=== PATIENT | female | born 1965 | race Caucasian/White ===

== ENCOUNTER 2023-06-14 10:36 | Outpatient (OUT) | payer BC, SELFPAY ==
--- NOTE | 2023-06-14 10:46 | ECG_ITS ---
[facility] Test Date: 2023-06-14 Pat Name: RUBY YBARRA Department: Room: - Gender: Female [employer]: : 1965 Requested By: Jeb Patterson Order Number: [id number] Reading MD: JIMMY TREJO Measurements Intervals Moyers Rate: 56 P: 17 PA: 162 QRS: -3 QRSD: 93 T: 19 QT: 380 QTc: 368 Interpretive Statements SINUS BRADYCARDIA LOW QRS VOLTAGE IN PRECORDIAL LEADS [QRS DEFLECTION < 1.0 mV IN CHEST LEADS] No previous ECG available for comparison Electronically Signed On 06-14-2023 22:54:58 EST by JIMMY TREJO
--- NOTE | 2023-06-14 11:35 | PM.PRESUREVA ---
History of Present Illness History of Present Illness Chief complaint: Right shoulder rotator cuff tear Narrative: Patient presents for preadmission testing. The patient reports right shoulder pain for quite some time and she had an MRI which demonstrated a rotator cuff tear. The patient states she has difficulty and pain with range of motion. She states at times she has intermittent numbness and tingling in her right hand. She states she does take Aleve which gives her some relief of her symptoms. Review of Systems ROS Narrative REVIEW OF SYSTEMS: Negative except as stated in HPI, ten or more systems reviewed. Constitutional: No fever , chills, weakness ENT: No sore throat or epistaxis Cardiovascular: No edema, chest pain, palpitations; Admits to dyspnea on exertion Respiratory: No shortness of breath, cough, or wheezing Gastrointestinal: No abdominal pain, constipation, diarrhea, or vomiting Genitourinary: No dysuria or hematuria Neurological: No headache Psychiatric: No mood changes [facility] Medical History (Updated 06/14/23 @ 11:41 by Erin Adams NP) Traumatic partial tear of right biceps tendon ?S46.211A - Strain of muscle, fascia and tendon of other parts of biceps, right arm, initial encounter (ICD-10) Back pain ?M54.9 - Dorsalgia, unspecified (ICD-10) Arthritis ?M19.90 - Unspecified osteoarthritis, unspecified site (ICD-10) Rotator cuff tear ?M75.100 - Unspecified rotator cuff tear or rupture of unspecified shoulder, not specified as traumatic (ICD-10) S/P extracorporeal shock wave therapy ?Z98.890 - Other specified postprocedural states (ICD-10) Insomnia ?G47.00 - Insomnia, unspecified (ICD-10) Kidney stones ?N20.0 - Calculus of kidney (ICD-10) Dyspnea on exertion ?R06.09 - Other forms of dyspnea (ICD-10) High cholesterol ?E78.00 - Pure hypercholesterolemia, unspecified (ICD-10) Hypertension ?I10 - Essential (primary) hypertension (ICD-10) Menopause ?Z78.0 - Asymptomatic menopausal state (ICD-10) Surgical History (Updated 06/14/23 @ 11:25 by Erin Adams NP) S/P ureteral stent placement ?Z96.0 - Presence of urogenital implants (ICD-10) History of tubal ligation ?Z98.51 - Tubal ligation status (ICD-10) Family History (Updated 06/14/23 @ 11:25 by Erin Adams NP) Other Cardiomyopathy Congenital heart anomaly Family history of diabetes mellitus Family history of heart disease Family history of hypertension Family history of lung cancer TIA (transient ischemic attack) Social History (Updated 06/14/23 @ 11:04 by Erin Adams NP) Within the past year, how often did you have a drink containing alcohol: monthly or less Smoking status: Never smoker Non-prescribed substance use: denies use Previous occupational history: [employer] Highest level of school completed/degree received: high school graduate Meds Home Medications and Allergies Home Medications Medication Instructions Recorded Confirmed Type aspirin 81 mg tablet,delayed 81 mg PO DAILY 06/14/23 06/14/23 History release (Adult Aspirin Regimen) hydrochlorothiazide 25 mg tablet 25 mg PO DAILY 06/14/23 06/14/23 History hydroxyzine HCl 50 mg tablet 50 mg PO QPM PRN insomnia 06/14/23 06/14/23 History lisinopril 20 mg tablet 20 mg PO DAILY 06/14/23 06/14/23 History melatonin 10 mg capsule 10 mg PO DAILY 06/14/23 06/14/23 History naproxen sodium 220 mg tablet 220 mg PO BID PRN pain 06/14/23 06/14/23 History (Aleve) simvastatin 20 mg tablet 20 mg PO DAILY 06/14/23 06/14/23 History Allergies Allergy/AdvReac Type Severity Reaction Status Date / Time Sulfa (Sulfonamide Allergy Rash Verified 06/14/23 11:00 Antibiotics) Exam Narrative Exam Narrative: Constitutional: Awake, alert, comfortable, well-appearing, nontoxic, interactive, vital signs as charted Head: Normocephalic, atraumatic Neck: Supple, normal appearance, normal range of motion, no meningeal signs, no lymphadenopathy Respiratory: No respiratory distress, breath sounds clear Cardiovascular: Regular rate and rhythm, strong and regular heart tones Skin: No rashes or induration, no lesions, only visible skin inspected Neuro: No neurological deficits, normal sensation Psychiatric: Oriented ?3, normal affect Assessment and Plan Assessment and Plan (1) Rotator cuff tear: (2) Traumatic partial tear of right biceps tendon: Plan Right shoulder arthroscopic rotator cuff repair, possible biceps tenodesis scheduled with Dr. Patterson 06/26/2023.
[2023-06-14 11:51] LABS: Anion Gap 8.4; Calcium 9.4 mg/dL (8.5-10.1); Chloride 106 mmol/L (98-107); Estimated GFR (African America >60 (>=60); Estimated GFR (Non-African Ame >60 (>=60); Glucose 96 mg/dL (74-106); Potassium 4.4 mmol/L (3.5-5.1); Sodium 139 mmol/L (136-145)
== END 2023-06-14 10:37 | disposition home or self-care (01) ==
LOC: PST 10:40
PROVIDERS: Visit Provider Orthopaedic Surgery
DX: Z01.810 Encounter for preprocedural cardiovascular examination (principal); Z01.812 Encounter for preprocedural laboratory examination; Z01.818 Encounter for other preprocedural examination; M75.121 Complete rotator cuff tear or rupture of right shoulder, not specified as traumatic; S46.211A Strain of muscle, fascia and tendon of other parts of biceps, right arm, initial encounter
CPT/HCPCS: 80048; 93005; G0463

== ENCOUNTER 2023-06-26 11:24 | Day surgery (SDC) | payer BC, SELFPAY ==
[2023-06-14 11:26] VITALS: BP 136/86; PULSE 60; RESP 20; TEMP 36.2; O2SAT 98; BMI 39.1
[2023-06-26] VITALS (10 sets, daily range): BP systolic 116–159; BP diastolic 64–86; PULSE 72–82; RESP 14–20; TEMP 36.4; O2SAT 92–97; BMI 39.1
[2023-06-26 11:30] LABS: Basophils Absolute Auto 0.1 10^3/uL (0.0-0.1); Basophils Percent Auto 1.2 % (0.2-2.0); Eosinophils Absolute Auto 0.3 10^3/uL (0.0-0.7); Eosinophils Percent Auto 4.1 % (0.9-7.0); Hematocrit 44.2 % (36.0-48.0); Hemoglobin 14.5 g/dL (12.0-16.0); Immature Granulocytes Abs Auto 0.02 10^3/uL (0.00-0.03); Immature Granulocytes Pct Auto 0.3 % (0.0-0.5); Lymphocytes Absolute Auto 2.8 10^3/uL (1.2-3.8); Lymphocytes Percent Auto 36.6 % (20.5-60.0); Mean Corpuscular HGB Conc 32.8 g/dL (29.9-35.2); Mean Corpuscular Volume 88.4 fL (81.0-99.0); Mean Platelet Volume 9.5 fL (9.5-13.5); Monocytes Absolute Auto 0.6 10^3/uL (0.3-0.8); Monocytes Percent Auto 7.3 % (1.7-12.0); Neutrophils Absolute Auto 3.9 10^3/uL (1.4-6.5); Neutrophils Percent Auto 50.5 % (43.0-75.0); Platelet Count 263 10^3/uL (150-450); Red Cell Distribution Width 13.2 % (11.0-15.0); White Blood Count 7.7 10^3/uL (4.0-11.0)
--- OUTSIDE RECORDS SUMMARY | 2023-06-26 11:30 | XMS_ITS | CCD ---
Author Name Unknown Address [address] [place] [address] Organization [facility] Care Team Providers Care Division Manager Name Role Phone Deb Pulliam Primary Care Provider Trevor Sanon APRN, CNP Primary Care Provide r TREVOR MACK Primary Care Unavailable TREVOR MACK Referring Unavailable RYNE COMBS Referring Unavailable TREVOR MACK Primary Care Unavailable RYNE COMBS Attending Unavailable TREVOR MACK Primary Care Unavailable TREVOR MACK Referring Unavailable RYNE COMBS Referring Unavailable TREVOR MACK G Primary Care Unavailable Allergies Allergy Classification Reported Allergen(s) Allergy Type Date of Onset Reaction(s) Facility (1 source) Sulfonamides (Antibiotic) Propensity to adverse reactions to drug 03-16-2020 [place] (1 source) Sulfonamides (Antibiotic) Propensity to adverse reactions to drug 03-16-2020 [facility] Medications Current Medications Medication Drug Class(es) Dates Sig (Normalized) Sig (Original) aspirin 81 mg delayed release oral tablet (1 source) Platelet Aggregation Inhibitor, Nonsteroidal Anti-inflammator y Drug take 1 tablet by mouth once daily aspirin 81 MG EC tablet Take 1 tablet by mouth daily 0 Active hydroCHLOROthiazide 25 mg oral tablet (2 sources) Thiazide Diuretic Start: 3 take 1 tablet by mouth once daily hydroCHLOROthiazide (HYDRODIURIL) 25 MG tablet Indications: Essential hypertension Take 1 tablet by mouth daily 90 tablet 1 03/31/2023 Active Start: 03-16-2020 take 1 tablet by nalini once daily hydroCHLOROthiazide (HYDRODIURIL) 25 MG tablet TAKE 1 TABLET BY MOUTH ONCE DAILY 90 tablet 1 03/16/2020 Active hydrOXYzine hydrochloride 50 mg oral tablet (1 source) Antihistamine Start: 03-31-2023 take 0.5 tablet by mouth once daily as needed hydrOXYzine HCl (ATARAX) 50 MG tablet Indications: Poor sleep Take 0.5 tablets by mouth nightly as needed (insomnia) 30 tablet 0 03/31/2023 Active lisinopril 20 mg oral tablet (2 sources) Angiotensin Converting Enzyme Inhibitor Start: 03-31-2023 take 1 tablet by mouth once daily lisinopril (PRINIVIL;ZESTRIL) 20 MG tablet Indications: Essential hypertension Take 1 tablet by mouth daily 90 tablet 1 03/31/2023 Active Start: 03-16-2020 take 1 tablet by nalini th once daily lisinopril (PRINIVIL;ZESTRIL) 20 MG tablet TAKE 1 TABLET BY MOUTH ONCE DAILY 90 tablet 1 03/16/2020 Active melatonin 10 mg oral tablet (1 source) take 1 tablet by mouth once daily as needed Melatonin 10 MG TABS Take 1 tablet by mouth nightly as needed 0 Active naproxen sodium 220 mg oral tablet (1 source) Nonsteroidal Anti-inflammatory Drug naproxen sodium (ANAPROX) 220 MG tablet Take 2 tablets by mouth as needed for Pain 0 Active Naproxen Sod-diphenhydrAMINE (ALEVE PM PO) (1 source) take 2 tablets by mouth at bedtime Naproxen Sod-diphenhydrAMINE (ALEVE PM PO) Take 2 tablets by mouth at bedtime 0 Active simvastatin 20 mg oral tablet (2 sources) HMG-CoA Reductase Inhibitor Start: 03-31-20 take 1 tablet by mouth once daily simvastatin (ZOCOR) 20 MG tablet Indications: Hyperlipidemia, unspecified hyperlipidemia type Take 1 tablet by mouth nightly 90 tablet 1 03/31/2023 Active Start: 03-16-2020 take 1 tablet by nalini th once daily simvastatin (ZOCOR) 20 MG tablet Take 1 tablet by mouth nightly 90 tablet 1 03/16/2020 Active Problems Active Problems Problem Classification Problem Date Documented Da te Episodic/Chronic Disorders of lipid metabolism (3 sources) Hyperlipidemia; Translations: [Hyperlipidemia, unspecified] Onset: 03-17-2021 03-31-2023 Chronic Essential hypertension (3 sources) Essential hypertension; Translations: [Essential (primary) hypertension] Onset: 12-08-2021 12-22-2023 Chronic Other nervous system disorders (1 source) Other chronic pain; Translations: [Other chronic pain] Onset: 09-20-2021 Chronic Other non-traumatic joint disorders (1 source) Pain in right shoulder; Translations: [Pain in right shoulder] Onset: 05-12-2023 Episodic Other screening for suspected conditions (not mental disorders or infectious disease) (1 source) Encounter for screening mammogram for malignant neoplasm of breast; Translations: [Encounter for screening mammogram for malignant neoplasm of breast] Onset: 03-16-2023 Episodic Past or Other Problems Problem Classification Problem Date Documented Da te Episodic/Chronic Other non-traumatic joint disorders (1 source) Chronic pain of right upper limb; Translations: [Pain in right shoulder] Onset: 09-20-2021 09-20-2021 Episodic Spondylosis; intervertebral disc disorders; other back problems (1 source) Chronic low back pain; Translations: [Chronic bilateral low back pain without sciatica] Onset: 09-26-2022 09-26-2022 Episodic Results Test Name Value Interpretation Reference Range Facility MRI SHOULDER RIGHT WO CONTRA STon 05-24-2023 MRI SHOULDER RIGHT WO CONTRAST RADRPT HISTORY: Acute pain of the right shoulder. MRI SHOULDER RIGHT WO CONTRAST: 05/24/2023 11:03 AM EST COMPARISON: Radiographs right shoulder 05/12/2023. TECHNIQUE: Multiplanar, multisequence MRI images of the shoulder were obtained. FINDINGS: A few images are slightly degraded by breathing motion artifact. ACROMIOCLAVICULAR JOINT AND ROTATOR CUFF OUTLET: There are moderate to severe degenerative changes of the acromioclavicular joint with subacromial fat effacement. There is a type I acromion. There is a small amount of edema-like signal in the subacromial/subdeltoid space. ROTATOR CUFF: There is severe tendinopathy of the distal supraspinatus and infraspinatus tendon. There is a full-thickness tear of the anterior two thirds of the supraspinatus tendon near its insertion with tendon retraction of 1.6 cm. There is also a low-grade partial-thickness tear involving the articular surface of the distal infraspinatus tendon and this involves less than 50% of tendon thickness. There is moderate tendinopathy of the subscapularis tendon. No atrophy or strain of the rotator cuff musculature is seen. The bulk of the rotator cuff musculature appears within normal limits. BICEPS TENDON AND LABRUM: There is severe tendinopathy and a superimposed longitudinal intrasubstance tear of the proximal intra-articular portion of the long bicipital tendon. The tendon is located within the bicipital groove and there is a small amount of fluid surrounding the tendon within the bicipital groove. There is a complex SLAP tear involving the biceps anchor and extending into the posterosuperior labrum. There is also evidence of a nondisplaced tear of the anterior and anteroinferior labrum. GLENOHUMERAL JOINT: There are mild degenerative changes of the glenohumeral joint and small marginal osteophytes of the glenoid. BONES: The bone marrow signal intensity is age appropriate. Report electronically signed by: Dr. Sebas Means IMPRESSION: 1. Severe tendinopathy of the supraspinatus and infraspinatus tendon with a full-thickness tear of the anterior two thirds of the supraspinatus tendon with tendon retraction of 1.6 cm. There is also a low-grade partial-thickness tear of the articular surface of the distal infraspinatus tendon. 2. Severe tendinopathy and longitudinal intrasubstance tear of the proximal intra-articular portion of the long bicipital tendon. 3. Mild osteoarthritis of the glenohumeral joint with a complex SLAP tear involving the biceps anchor and extending into the posterosuperior labrum. There is also a nondisplaced tear of the anterior and anteroinferior labrum. 4. Moderate to severe acromioclavicular joint osteoarthritis with subacromial fat effacement. Acute pain of right shoulder Interpreted by: Sebas Means MD Signed by: Sebas Means MD 05/24/23 Final result Normal [facility] XR SHOULDER RIGHT (MIN 2 VIE WS)on 05-12-2023 XR SHOULDER RIGHT (MIN 2 VIEWS) RADRPT EXAM: XR SHOULDER RIGHT (MIN 2 VIEWS) HISTORY: TECH NOTES: Chronic right shoulder pain Chronic right shoulder pain COMPARISON: None. TECHNIQUE: 3 views FINDINGS: No acute fracture or dislocation. Mild degenerative change of the acromioclavicular and glenohumeral joints. Unremarkable soft tissues. Report electronically signed by: Dr. Juan Marcano IMPRESSION: Degenerative changes as above. Chronic right shoulder pain Interpreted by: Juan Marcano MD Signed by: Juan Marcano MD 05/12/23 Final result Normal [facility] Basic Metabolic Panelon 12-2 Calcium [Mass/Vol] 9.5 mg/dL Normal 8.4-10.2 [facility] Comment on above: Performed By: #### B RAI, LIPD #### [place] [address] Ph. [phone] Chloride [Moles/Vol] 105 mmol/L Normal 98-107 [facility] Comment on above: Performed By: #### B RAI, LIPD #### [place] [address] Ph. [phone] CO2 [Moles/Vol] 26 mmol/L Normal 22-32 [facility] Comment on above: Performed By: #### B RAI, LIPD #### [place] [id number] Ph. [phone] Creatinine [Mass/Vol] 0.73 mg/dL Normal 0.52-1.04 [facility] Comment on above: Performed By: #### B RAI, LIPD #### [place] [id number] Ph. [phone] GFR/1.73 sq M.predicted among non-blacks MDRD (S/P/Bld) [Vol rate/Area] 94 mL/min/{1.73_m2} Normal >60 [facility] Comment on above: Result Comment: GFR calculated using CKD-EPI (2020) formula.\X0D0A\Stage 1 Kidney damage (e.g., protein in the urine) with normal GFR >=90\X0D0A\Stage 2 Kidney damage with mild decrease in GFR 60-89\X0D0A\Stage 3a Moderate decrease in GFR 45-59\X0D0A\Stage 3b Moderate decrease in GFR 30-44\X0D0A\Stage 4 Severe reduction in GFR 15-29\X0D0A\Stage 5 Kidney failure <15 Performed By: #### B RAI LIPJohn Paul #### [place] [address] Ph. [phone] Glucose [Mass/Vol] 94 mg/dL Normal 65-100 [facility] Comment on above: Performed By: #### B RAI, LIPD #### [place] [address] Ph. [phone] Potassium [Moles/Vol] 3.8 mmol/L Normal 3.6-5.0 [facility] Comment on above: Performed By: #### B RAI, LIPJohn Paul #### [place] [address] Ph. [phone] Sodium [Moles/Vol] 138 mmol/L Normal 135-145 [facility] Comment on above: Performed By: #### B RAI, LIPD #### [place] [address] Ph. [phone] Urea nitrogen [Mass/Vol] 22 mg/dL High 7-17 [facility] Comment on above: Performed By: #### B RAI, LIPD #### [place] [address] Ph. [phone] Calcium [Mass/Vol] 9.5 mg/dL 8.4 - 10. 2 mg/dL [facility] Chloride [Moles/Vol] 105 mmol/L [facility] CO2 [Moles/Vol] 26 mmol/L [facility] Creatinine [Mass/Vol] 0.73 mg/dL 0.52 - 1.04 mg/dL [facility] GFR, Estimated 94 - PINF [facility] Comment on above: GFR calculated using CKD-EPI (2020) formula. Stage 1 Kidney damage (e.g., protein in the urine) with normal GFR >=90 Stage 2 Kidney damage with mild decrease in GFR 60-89 Stage 3a Moderate decrease in GFR 45-59 Stage 3b Moderate decrease in GFR 30-44 Stage 4 Severe reduction in GFR 15-29 Stage 5 Kidney failure <15 Glucose [Mass/Vol] 94 mg/dL 65 - 100 mg/dL [facility] Potassium [Moles/Vol] 3.8 mmol/L [facility] Sodium [Moles/Vol] 138 mmol/L [facility] Urea nitrogen (BldV) [Mass/Vol] 22 mg/dL High 7 - 17 mg/dL [facility] Lipid Panelon 03-31-2023 Cholesterol [Mass/Vol] 204 mg/dL High 100-200 [facility] Comment on above: Order Comment: Is Pa tient Fasting?/# of Hours->12 Result Comment: <200 mg/dL is recommended cholesterol level. Performed By: #### B RAI LIPD #### [place] [address] Ph. [phone] Cholesterol in HDL [Mass/Vol] 73 mg/dL Normal >60 [facility] Comment on above: Order Comment: Is Pa tient Fasting?/# of Hours->12 Performed By: #### B RAI, LIPD #### [place] [address] Ph. [phone] Cholesterol in LDL [Mass/Vol] 117 mg/dL High 20-100 [facility] Comment on above: Order Comment: Is Pa tient Fasting?/# of Hours->12 Performed By: #### B RAI, LIPD #### [address] [address] Ph. [phone] Cholesterol.total/C holesterol in HDL [Mass ratio] 3 {ratio} Normal 1-5 [facility] Comment on above: Order Comment: Is Pa tient Fasting?/# of Hours->12 Performed By: #### B RAI LIPD #### [place] [address] Ph. [phone] Triglyceride [Mass/Vol] 69 mg/dL Normal 10-150 [facility] Comment on above: Order Comment: Is Pa tient Fasting?/# of Hours->12 Performed By: #### B RAI, LIPD #### [place] [id number] Ph. [phone] Cholesterol [Mass/Vol] 204 mg/dL High 100 - 200 mg/dL [facility] Comment on above: <200 mg/dL is recommended cholesterol level. Cholesterol in HDL [Mass/Vol] 73 mg/dL 60 - PINF mg/dL [facility] Cholesterol in LDL [Mass/Vol] 117 mg/dL High 20 - 100 mg/dL [facility] CHOLESTEROL/HDL RELATIVE RISK 3 [facility] Triglyceride [Mass/Vol] 69 mg/dL 10 - 150 mg/dL [facility] Is Patient Fasting?/ # of Hours->12 [facility] No Panel Informationon 03-31 Interpretation and review of laboratory results Abnormal [facility] DIGITAL SCREEN BILA TERALon 03-16-2023 [facility] DIGITAL SCREEN BILATERAL RADRPT HISTORY: Screening. TECHNIQUE: Craniocaudal and mediolateral oblique views of the breasts were obtained with digital mammography CAD 2-D and 3-D tomosynthesis. COMPARISON: 09/27/2021, 10/08/2020, 08/22/2019. FINDINGS: Scatter fibroglandular tissue. No dominant masses, suspicious calcifications, or areas of architectural distortion. Report electronically signed by: Dr. Juan Gordon IMPRESSION: Stable mammogram. BI-RADS: 1 - Negative, no evidence of malignancy. Normal interval followup in 12 months. OVERALL ASSESSMENT- NEGATIVE A letter of notification will be sent to the patient regarding the results. Interpreted by: Juan Gordon MD Signed by: Juan Gordon MD 03/17/23 Final result Normal [facility] Comprehensive Metabolic Pane rajani 05-13-2020 Albumin [Mass/Vol] 4.4 g/dL 3.5 - 5 g/dL [place], [place] ALP [Catalytic activity/Vol] 62 U/L 38 - 126 U/L [place] ALT [Catalytic activity/Vol] 33 U/L 0 - 35 U/L [place] AST [Catalytic activity/Vol] 31 U/L 14 - 36 U/L [place] Bilirubin Ql (U) 0.6 mg/dL 0.2 - 1.3 mg/dL [place] Calcium [Mass/Vol] 9.6 mg/dL 8.4 - 10. 2 mg/dL [place] Chloride [Moles/Vol] 101 mmol/L [place] CO2 [Moles/Vol] 28 mmol/L [place] [address] Creatinine [Mass/Vol] 0.74 mg/dL 0.52 - 1.04 mg/dL [place] GFR/1.73 sq M predicted among non-blacks MDRD (S/P/Bld) [Vol rate/Area] 90 mL/min/{1.73_m2} >60 mL/min/1.73m2 [place] Comment on above: Stage 1 Kidney damage (e.g., protein in the urine) with normal GFR >=90 Stage 2 Kidney damage with mild decrease in GFR 60-89 Stage 3a Moderate decrease in GFR 45-59 Stage 3b Moderate decrease in GFR 30-44 Stage 4 Severe reduction in GFR 15-29 Stage 5 Kidney failure <15 Glucose [Mass/Vol] 98 mg/dL 65 - 100 mg/dL [place], [place] Potassium [Moles/Vol] 4.0 mmol/L [place] Protein [Mass/Vol] 7.1 g/dL 6.3 - 8.2 g/dL [place] Sodium [Moles/Vol] 137 mmol/L [place] Urea nitrogen [Mass/Vol] 24 mg/dL High 7 - 17 mg/dL [place] Lipid Panelon 05-13-2020 Cholesterol [Mass/Vol] 209 mg/dL High 100 - 200 mg/dL [place] Comment on above: <200 mg/dL is recommended cholesterol level. Cholesterol in HDL [Mass/Vol] 77 mg/dL >60 [place] Cholesterol in LDL [Mass/Vol] 120 mg/dL High 20 - 100 mg/dL [place] CHOLESTEROL/HDL RELATIVE RISK 3 [place] Triglyceride [Mass/Vol] 59 mg/dL 10 - 150 mg/dL [place] Is Patient Fasting?/ # of Hours->8 [place] Otheron 05-13-2020 Interpretation and review of laboratory results Abnormal [facility] [place] [place] NOVEL CORONAVIRUS ALCONARYN GEAL - [facility] SPECIMEN ONLYon 11-29-2019 SARS-COV-2 NOT DETECTED Normal NOT DETECTED [facility] Comment on above: Order Comment: Viral transport media - Collection must be done while wearing N-95 mask, eye protection, gown and gloves. Please label ALL specimens as 2019-nCoV rule out and deliver by hand. This test was performed using real time PCR and has been approved for the qualitative detection of SARS-CoV-2 nucleic acid. The test has been authorized by the FDA under an emergency use authorization for use by authorized laboratories. Result Comment: Nega tive results do not preclude SARS-CoV-2 infection and should not be used as the sole basis for treatment or other patient management decisions. Optimum specimen types and timing for peak viral levels during infections caused by SARS-CoV-2 has not been determined. The possibility of a false negative result should especially be considered if the patient's recent exposures or clinical presentation suggest that SARS-CoV-2 infection is probable, and diagnostic tests for other causes of illness (e.g., other respiratory illness) are negative. Collection of a new specimen and re-testing may be necessary if the patient is critically ill or clinically deteriorating. Performed By: #### L [id number] #### [facility] ([facility]) [address] [place] [address] Encounters Encounter Date Encounter Type Care Provider Facility Start: 05-24-2023 ambulatory [facility] Start: 05-12-2023 ambulatory [facility] Start: 03-31-2023 ambulatory [facility] Start: 03-31-2023 End: 03-31-2023 Subsequent hospital visit by physician Trevor Mack APRN - [place] Work Phone: [facility] Comment on above: Hyperlipidemia, unsp ecified hyperlipidemia type; Essential hypertension Start: 03-16-2023 ambulatory [facility] Start: 05-13-2020 End: 05-13-2020 Subsequent hospital visit by physician Deb Pulliam [facility] Comment on above: Hyperlipidemia, unsp ecified hyperlipidemia type; Essential hypertension Procedures Date Procedure Procedure Detail Performing Clinician Start: 03-31-2023 Basic metabolic pane l calcium total Trevorrandal Mack [facility] Work Phone: Start: 03-31-2023 Lipid panel Trevor Pena rfoss [facility] [employer] [employer] [facility] Work Phone: Start: 05-13-2020 Comprehensive metabo lic panel Deb Pulliam Work Phone: Start: 05-13-2020 Lipid panel Deb Dimas alendine Work Phone: Start: 12-03-2019 Colonoscopy Trevor Edmondson oss [facility] Work Phone: Plan of Treatment Date Care Activity Detail Author Start: 12-02-2029 Screening for malign ant neoplasm of colon [facility] Start: 03-16-2025 Screening for malign ant neoplasm of breast Breast cancer screen [facility] Start: 03-31-2024 Lipid panel Lipids [facility] Start: 10-03-2023 End: 10-03-2023 Patient encounter procedure 10/03/2023 10:00 AM EDT Office Visit [facility] at [address] [phone] Trevor Mack, [facility] [employer] [employer] [facility] [address] [place] [id number] 6 mo [facility] Comment on above: 6 mo Start: 09-27-2023 Depression Screen Depression Screen [facility] Start: 09-27-2023 Shingles vaccine (1 of 2) [facility]ing[facility] of 2) [facility] Comment on above: Postponed from 06/04 (Patient Refused) Start: 11-08-2022 Influenza vaccination Flu vaccine (# 1) [facility] Start: 05-13-2021 Creatinine measurement Creatinine mo [place] Start: 05-13-2021 Lipid panel Lipid screen [place], [place] Start: 05-13-2021 Potassium monitoring Potassium monit [place], [place] Start: 09-17-2020 End: 09-17-2020 Office Visit 09/17/2020 Office Visit Primary Care Deb Pulliam MD [address] [place] [address] [phone] [facility] Start: 12-10-2019 Influenza vaccination Flu vaccine (# 1) [place], [place] Start: 2013 Screening for malign ant neoplasm of breast Breast cancer screen [place], [place] Start: 2013 Screening for malign ant neoplasm of colon Colon cancer screen colonoscopy [place], [place] Start: 2013 Shingles Vaccine (1 of 2) Shingles Vaccine (1 of 2) [place] Start: 2008 Screening for malign ant neoplasm of colon [facility] Start: 1993 Screening for malign ant neoplasm of cervix [facility] Start: 1984 Screening for malign ant neoplasm of cervix [facility] Start: 1982 DTaP/Tdap/Td vaccine (1 - Tdap) DTaP/Tdap/Td vaccine (1 - Tdap) [facility] Start: 1978 HIV screening HIV screen [place] [address], [place] Start: 1963 COVID-19 Vaccine (#1) COVID-19 Vacci ne (#1) [facility] Start: 1965 Hepatitis B vaccine (1 of 3 - 3-dose series) Hepatitis B vaccine (1 of 3 - 3-dose series) [facility] Start: 1965 Hepatitis C screening Hepatitis C sc reen [place] Payers Date Payer Category Payer Unknown [id number] 2020 Unknown [employer] [id number] 2020-Present Indemnity [id number] 1963 Unknown [id number] 1963 Unknown [id number] 1963 Unknown [id number] 1963 Unknown [id number] Social History Date Type Detail Facility Start: 03-16-2020 End: 03-22-2022 Tobacco smoking status NHIS Never smoker [facility] Start: 03-16-2020 End: 03-22-2022 Tobacco use and exposure Never used [place] Start: 03-16-2020 End: 03-31-2023 Alcohol intake Current drinker of alcohol (finding) [place] Start: 03-16-2020 History SDOH Alcohol Frequency 2 [place] Start: 03-16-2020 History SDOH Alcohol Std Drinks 1 [place], [place] Start: 1965 Sex Assigned At Not on file [place] Start: 03-16-2020 End: 09-26-2022 History of Social function [employer] Work Phone: Start: 03-16-2020 End: 09-26-2022 Alcohol Use Disorder Identification Test - Consumption [AUDIT-C] [employer] Phone: How often to you hav e a drink containing alcohol? Monthly or less [employer] Phone: How many standard dr inks containing alcohol do you have on a typical day? 1 or 2 [employer] Work Phone: How often do you hav e 6 or more drinks on 1 occasion? Never [employer] Phone: Patient Health Questionnaire 9 item (PHQ-9) total score [Reported] 0 [employer] Work Phone: Start: 03-22-2021 Alcohol Comment occasional [employer] Work Phone: Evaluation note Note Date & Type Note Facility Evaluation note Diagnosis Hyperlipidemia, unspecified hyperlipidemia type Essential hypertension Unspecified essential hypertension documented in this encounter [facility] Work Phone: Summary Purpose Family History No Family History Records FoundNo Family History Records Found Advance Directives No Advanced Directives Records FoundNo Advanced Directives Records Found Assessments Diagnosis Hyperlipidemia, unspecified hyperlipidemia type Essential hypertension Unspecified essential hypertension Additional Source Comments INFORMATION SOURCE (unrecogn ized section and content) DATE CREATED AUTHOR 12/03/2019 [facility] DATE CREATED AUTHOR AUTHOR'S ORGANIZ ATION 05/28/2023 [facility] Care Teams (unrecognized sec tion and content) Division Manager Relationship Specialty Start Date End Date Trevor Mack, [facility] [employer] [employer] [facility] [address] [place] [address] PCP - General Nurse Practitioner 01/26/21 FOR RECORDS PERTAINING TO PATIENTS WHO ARE OR HAVE BEEN ENROLLED IN A CHEMICAL DEPENDENCY/SUBSTANCEABUSE PROGRAM, SOME INFORMATION MAY BE OMITTED. This clinical summary was aggregated from multiple sources. Caution should be exercised in using it in the provision of clinical care. This summary normalizes information from multiple sources, and as a consequence, information in this document may materially change the coding, format and clinical context of patient data. In addition, data may be omitted in some cases. CLINICAL DECISIONS SHOULD BE BASED ON THE PRIMARY CLINICAL RECORDS. [facility] [employer] [facility]. provides no warranty or guarantee of the accuracy or completeness of information in this document.
[2023-06-26] MEDS: LACTATED RINGER'S SOLUTION 1,000 ML 50 ML IV ×2 (11:45→15:28)
--- NOTE | 2023-06-26 13:03 | PC.NURSE ---
1250 time out performed per protocol. Dr. Erickson marked the operative side against the surgical consent, H and P, and Patient verbalization. All staff and patient agreed the right side was the correct side. patient hooked to all safety monitors at this time. Patient repositioned per anesthesia. Dr. Erickson with the assistance of ultrasound guidance initiated a interscalene block on the right side. Patient tolerated procedure well. Block initiated at 1253 and ended at 1258. Patient cleaned up following procedure, sharps were disposed of properly and patient was given call light. Patient denies any further needs at this time.
[2023-06-26] MEDS: SCOPOLAMINE 1 MG/3 DAYS TRANSDERM PATCH 1 PATCH TD (13:11)
[2023-06-26] MEDS: CEFAZOLIN SODIUM/DEXTROSE,ISO 2 GM/50 ML PIGGYBACK IV (14:05)
--- NOTE | 2023-06-26 16:15 | P.ORPRC_ITS ---
Procedure Note Date of procedure: 06/26/23 Pre-op diagnosis: 1. Right shoulder rotator cuff tear 2. Partial-thickness biceps tend.tear Post-op diagnosis: same as pre-op Procedure: Operation: 1. Right shoulder arthroscopic rotator cuff repair 2. Open subpectoralis biceps tenodesis Operative procedure: After informed consent was obtained the patient was brought to the operating room where general anesthetic was administered. Preoperatively regional block was placed. The patient was placed in the beachchair position. Exam under anesthesia of the right shoulder revealed full range of motion and no instability. The right shoulder was prepped and draped in usual sterile fashion. Diagnostic arthroscopy was performed through standard anterior, posterior and lateral arthroscopy portals. Findings included a 75% thickness tear of the biceps tendon at its attachment to the labrum. This was tenotomized for later tenodesis. Articular cartilage of the glenoid had focal grade II chondromalacia of the very anterior aspect just adjacent to the labrum at the 3 o'clock position. Unstable articular cartilage flaps were debrided with arthroscopic shaver back to stable edge. Articular cartilage of the humeral head was intact. Labrum had fraying of the superior labrum and this was debrided with the arthroscopic shaver. Subscapularis tendon was intact. Supraspinatus tendon had full-thickness tearing with minimal retraction. Infraspinatus was intact. Axillary recess had no loose bodies. Posterior labrum was intact. Arthroscope was introduced into the subacromial space and there was mild bursal inflammation which was removed the arthroscopic shaver. The torn edge of the rotator cuff was debrided down to more healthy tissue. The greater tuberosity where the rotator cuff and torn from was debrided down to bleeding bed of bone. 1 Arthrex suture tape and 1 Arthrex fiber tape were placed in an inverted horizontal mattress fashion in the torn supraspinatus tendon. These were then secured to the greater tuberosity with 1 Arthrex 4.75 bio composite swivel lock resulting in a nice repair. The retention sutures was passed through the rotator cuff anteriorly tied in a simple fashion augmenting the repair. Shoulder was drained of arthroscopy fluid. A 3 cm incision made distal to the pectoralis tendon. Subpectoralis approach was bluntly carried out the tenotomized biceps tendon was externalized. An Arthrex #2 suture tape was then placed from a running locking fashion of the muscle tendon junction extending for 2 cm. Tendon was measured to 6 mm. The 2 suture ends were placed in the biceps button. The guidepin for the Arthrex lory ps button was then placed in a bicortical fashion in the bicipital groove at the appropriate position. A unicortical 6 mm drill hole was created over the top of this. The biceps button was then passed to the far cortex and flipped. Sutures were pulled introducing the tendon into the tunnel that was created. Sutures were tied resulting in a nice repair. Wound was irrigated and wounds were all closed in standard fashion. Steri-Strips and sterile dressing were placed. UltraSling was placed. Patient was awakened and brought to the recovery in stable condition. There were no intraoperative or immediate postoperative complications. Anesthesia: GETA and regional Surgeon: Jeb Patterson Estimated blood loss (mL): 5 Pathology: none sent Condition: stable Disposition: PACU
== END 2023-06-26 17:39 | disposition home or self-care (01) ==
PROVIDERS: Visit Provider Orthopaedic Surgery
PROC: (CPT 1630; principal; 2023-06-26 13:10)
DX: M75.121 Complete rotator cuff tear or rupture of right shoulder, not specified as traumatic (principal); S46.211A Strain of muscle, fascia and tendon of other parts of biceps, right arm, initial encounter; I10 Essential (primary) hypertension; M19.90 Unspecified osteoarthritis, unspecified site; G47.00 Insomnia, unspecified; Z87.442 Personal history of urinary calculi; E78.00 Pure hypercholesterolemia, unspecified; Z78.0 Asymptomatic menopausal state; Z98.51 Tubal ligation status; Z79.82 Long term (current) use of aspirin; X58.XXXA Exposure to other specified factors, initial encounter
CPT/HCPCS: 23430; 29827; 36415; 64415; 85025; C1713; J1094; J1170; J2704